=== PATIENT | male | born 2000 | race African-American/Black ===

== ENCOUNTER 2023-03-30 10:48 | Inpatient (IN) | payer OTHER ==
[~2023-03-30] VITALS: Ht 182.9 cm; Wt 75.0 kg
[2023-03-30] MEDS ORDERED: MED REC IN PROGRESS XX SCH (11:50)
[2023-03-30 11:54] LABS: HEMATOCRIT 45.4 % (42.0-52.0); HEMOGLOBIN 15.1 g/dl (13.5-17.5); MEAN CORPUSCULAR HEMOGLOBIN 27.9 pg (27.0-33.0); MEAN CORPUSCULAR HGB CONC 33.3 g/dl (32.0-36.5); MEAN CORPUSCULAR VOLUME 83.8 fl (80.0-96.0); PLATELET COUNT, AUTOMATED 324 10^3/uL (150-450); RED BLOOD COUNT 5.42 10^6/uL (4.30-6.10); WHITE BLOOD COUNT 5.2 10^3/uL (4.0-10.0)
[2023-03-30 12:04] LABS: AMPHETAMINES LEVEL URINE NEGATIVE (NEGATIVE); BARBITURATES URINE NEGATIVE (NEGATIVE); BENZODIAZEPINES URINE NEGATIVE (NEGATIVE); CANNABINOIDS URINE NEGATIVE (NEGATIVE); COCAINE METABOLITE URINE NEGATIVE (NEGATIVE); METHADONE URINE NEGATIVE (NEGATIVE); OPIATES URINE NEGATIVE (NEGATIVE); PHENCYCLIDINE URINE NEGATIVE (NEGATIVE)
[2023-03-30] MEDS ORDERED: HOME MED LIST COMPLETE! XX SCH (12:05)
[2023-03-30 12:06] LABS: ETHYL ALCOHOL (ETHANOL) 0.031 % (0.000-0.010)
[2023-03-30 12:08] LABS: ALBUMIN 4.1 G/DL (3.2-5.2); ALKALINE PHOSPHATASE 96 U/L (46-116); ALT/SGPT 17 U/L (7.0-40); AST/SGOT 18 U/L (<34); BILIRUBIN,DIRECT 0.2 MG/DL (<0.4); BILIRUBIN,TOTAL 0.8 MG/DL (0.3-1.2); BLOOD UREA NITROGEN 9 MG/DL (9-23); CALCIUM LEVEL 9.7 MG/DL (8.5-10.1); CARBON DIOXIDE LEVEL 25 MMOL/L (20-31); CHLORIDE LEVEL 107 MMOL/L (98-107); CREATININE FOR GFR 0.92 MG/DL (0.70-1.30); GLOMERULAR FILTRATION RATE > 60.0 (>60); GLUCOSE, FASTING 63 MG/DL (60-100); POTASSIUM SERUM 4.3 MMOL/L (3.5-5.1); SALICYLATE LEVEL < 3.0 MG/DL (<30); SODIUM LEVEL 142 MMOL/L (136-145); TOTAL PROTEIN 7.4 G/DL (5.7-8.2)
[2023-03-30 12:10] LABS: THYROID STIMULATING HORMONE 1.436 uIU/ML (0.55-4.78)
[2023-03-30] MEDS ORDERED: MOM 30ML SUSPENSION UDC PO PRN (13:00)
[2023-03-30] MEDS ORDERED: MAALOX 30 ML SUSP *UDC PO PRN (13:00)
[2023-03-30] MEDS ORDERED: IBUPROFEN 400MG TAB PO PRN (13:00)
[2023-03-30] MEDS ORDERED: ACETAMINOPHEN TAB 650MG DOSE (2X325MG) PO PRN (13:00)
[2023-03-30] MEDS ORDERED: diphenhydrAMINE 25MG CAP PO PRN (13:00)
[2023-03-30 15:27] VITALS: BP 123/76; TEMP 97.8; O2SAT 99
[2023-03-30 15:32] VITALS: BP 123/76
[2023-03-30] MEDS: traZODone 50 MG TAB PO PRN (21:07)
[2023-03-31 06:27] VITALS: BP 124/67; TEMP 98.5; O2SAT 100
[2023-03-31] MEDS ORDERED: LORazepam 2 MG TAB PO PRN (12:25)
[2023-03-31] MEDS: FOLIC ACID 1MG TAB PO SCH (12:36)
[2023-03-31] MEDS: buPROPion **XL** TABLET 150MG (WELLBUTRIN XL) PO SCH (12:36)
[2023-03-31] MEDS: MULTIVITAMINS/MINERALS THERAP 1 TAB PO SCH (12:36)
[2023-03-31] MEDS: THIAMINE 100 MG TAB PO SCH ×2 (12:36→21:29)
[2023-03-31 13:24] VITALS: BP 123/77
[2023-03-31 17:09] VITALS: BP 128/78; TEMP 97.9
[2023-04-01] MEDS: traZODone 50 MG TAB PO PRN ×2 (00:10→22:43)
[2023-04-01 06:32] VITALS: BP 112/63; TEMP 98
[2023-04-01 08:30] VITALS: BP 112/63
[2023-04-01] MEDS ORDERED: PRAZOSIN 1 MG CAP PO PRN (09:45)
[2023-04-01] MEDS: THIAMINE 100 MG TAB PO SCH (09:59)
[2023-04-01] MEDS: MULTIVITAMINS/MINERALS THERAP 1 TAB PO SCH (09:59)
[2023-04-01] MEDS: buPROPion **XL** TABLET 150MG (WELLBUTRIN XL) PO SCH (09:59)
[2023-04-01] MEDS: FOLIC ACID 1MG TAB PO SCH (09:59)
[2023-04-01] MEDS: PROPRANOLOL 10 MG TAB PO SCH ×2 (10:00→22:43)
[2023-04-01 17:34] VITALS: BP 129/64; TEMP 97.7
[2023-04-02 06:27] VITALS: BP 113/57; TEMP 97.3; O2SAT 99
[2023-04-02] MEDS: MULTIVITAMINS/MINERALS THERAP 1 TAB PO SCH (09:05)
[2023-04-02] MEDS: buPROPion **XL** TABLET 150MG (WELLBUTRIN XL) PO SCH (09:05)
[2023-04-02] MEDS: FOLIC ACID 1MG TAB PO SCH (09:05)
[2023-04-02] MEDS: PROPRANOLOL 10 MG TAB PO SCH ×2 (09:07→21:08)
[2023-04-02 17:39] VITALS: BP 152/67; TEMP 98.6
[2023-04-02] MEDS: traZODone 50 MG TAB PO PRN (22:59)
[2023-04-03 06:05] VITALS: BP 111/74; TEMP 98.5; O2SAT 98
[2023-04-03] MEDS: MULTIVITAMINS/MINERALS THERAP 1 TAB PO SCH (09:19)
[2023-04-03] MEDS: buPROPion **XL** TABLET 150MG (WELLBUTRIN XL) PO SCH (09:19)
[2023-04-03] MEDS: FOLIC ACID 1MG TAB PO SCH (09:19)
[2023-04-03] MEDS: PROPRANOLOL 10 MG TAB PO SCH ×2 (09:20→21:32)
[2023-04-03 16:08] VITALS: BP 137/64; TEMP 98.1; O2SAT 100
[2023-04-03] MEDS ORDERED: PROP10TA56 PO (18:38)
[2023-04-03] MEDS ORDERED: BUPR150T12 PO (18:38)
[2023-04-03] MEDS ORDERED: VITMTA PO (18:38)
[2023-04-03] MEDS ORDERED: FOLI1TAB11 PO (18:38)
[2023-04-03] MEDS ORDERED: TRAZ-252 PO (18:38)
[2023-04-03] MEDS ORDERED: MINI1CAP PO (18:38)
[2023-04-03] MEDS: traZODone 50 MG TAB PO PRN (23:16)
[2023-04-04 06:29] VITALS: BP 113/57; TEMP 97.9; O2SAT 97
[2023-04-04 08:41] VITALS: BP 113/57; TEMP 97.9; O2SAT 97
[2023-04-04] MEDS: FOLIC ACID 1MG TAB PO SCH (09:04)
[2023-04-04] MEDS: MULTIVITAMINS/MINERALS THERAP 1 TAB PO SCH (09:04)
[2023-04-04 09:05] VITALS: BP 113/57
[2023-04-04] MEDS: PROPRANOLOL 10 MG TAB PO SCH (09:05)
[2023-04-04] MEDS: buPROPion **XL** TABLET 150MG (WELLBUTRIN XL) PO SCH (09:15)
== END 2023-04-04 09:27 | disposition home or self-care (01) | DRG 885 ==
LOC: M ED 10:48 → M ED INP 12:59 → M PSY 14:18
PROVIDERS: ADMIT Student in an Organized Health Care Education/Training Program; ATTEND Student in an Organized Health Care Education/Training Program
DX: F32.1 Major depressive disorder, single episode, moderate (principal); R45.851 Suicidal ideations; F10.10 Alcohol abuse, uncomplicated; F41.9 Anxiety disorder, unspecified; F90.9 Attention-deficit hyperactivity disorder, unspecified type; Z79.899 Other long term (current) drug therapy

== ENCOUNTER 2023-04-07 13:17 | Inpatient (IN) | payer OTHER ==
[~2023-04-07] VITALS: Ht 193 cm; Wt 95.0 kg
[~2023-04-07 13:17] MED LIST: BUPR150T12 PO; FOLI1TAB11 PO; MINI1CAP PO; PROP10TA56 PO; TRAZ-252 PO; VITMTA PO
[2023-04-07] MEDS ORDERED: LORazepam 2 MG TAB PO PRN (13:40)
[2023-04-07] MEDS ORDERED: MED REC IN PROGRESS XX SCH (14:20)
[2023-04-07 14:25] LABS: HEMATOCRIT 48.3 % (42.0-52.0); MEAN CORPUSCULAR HEMOGLOBIN 27.9 pg (27.0-33.0); MEAN CORPUSCULAR HGB CONC 33.1 g/dl (32.0-36.5); MEAN CORPUSCULAR VOLUME 84.1 fl (80.0-96.0); PLATELET COUNT, AUTOMATED 344 10^3/uL (150-450); RED BLOOD COUNT 5.74 10^6/uL (4.30-6.10); WHITE BLOOD COUNT 7.4 10^3/uL (4.0-10.0)
[2023-04-07 14:47] LABS: BARBITURATES URINE NEGATIVE (NEGATIVE); CANNABINOIDS URINE NEGATIVE (NEGATIVE); COCAINE METABOLITE URINE NEGATIVE (NEGATIVE); METHADONE URINE NEGATIVE (NEGATIVE); OPIATES URINE NEGATIVE (NEGATIVE); PHENCYCLIDINE URINE NEGATIVE (NEGATIVE)
[2023-04-07 14:48] LABS: AMPHETAMINES LEVEL URINE NEGATIVE (NEGATIVE); BENZODIAZEPINES URINE NEGATIVE (NEGATIVE)
[2023-04-07 14:49] LABS: ETHYL ALCOHOL (ETHANOL) < 0.003 % (0.000-0.010)
[2023-04-07 14:51] LABS: ALBUMIN 4.5 G/DL (3.2-5.2); ALKALINE PHOSPHATASE 90 U/L (46-116); ALT/SGPT 28 U/L (7.0-40); AST/SGOT 31 U/L (<34); BILIRUBIN,DIRECT 0.4 MG/DL (<0.4); BILIRUBIN,TOTAL 1.2 MG/DL (0.3-1.2); BLOOD UREA NITROGEN 14 MG/DL (9-23); CALCIUM LEVEL 9.9 MG/DL (8.5-10.1); CARBON DIOXIDE LEVEL 28 MMOL/L (20-31); CHLORIDE LEVEL 107 MMOL/L (98-107); CREATININE FOR GFR 1.04 MG/DL (0.70-1.30); GLOMERULAR FILTRATION RATE > 60.0 (>60); GLUCOSE, FASTING 86 MG/DL (60-100); POTASSIUM SERUM 4.6 MMOL/L (3.5-5.1); SALICYLATE LEVEL < 3.0 MG/DL (<30); SODIUM LEVEL 139 MMOL/L (136-145)
[2023-04-07 14:53] LABS: THYROID STIMULATING HORMONE 2.136 uIU/ML (0.55-4.78)
[2023-04-07] MEDS ORDERED: ACETAMINOPHEN TAB 650MG DOSE (2X325MG) PO PRN (16:00)
[2023-04-07] MEDS ORDERED: THIAMINE 100 MG TAB PO SCH (16:00)
[2023-04-07] MEDS ORDERED: MOM 30ML SUSPENSION UDC PO PRN (16:00)
[2023-04-07] MEDS ORDERED: MAALOX 30 ML SUSP *UDC PO PRN (16:00)
[2023-04-07] MEDS ORDERED: diphenhydrAMINE 25MG CAP PO PRN (16:00)
[2023-04-07] MEDS ORDERED: IBUPROFEN 400MG TAB PO PRN (16:00)
[2023-04-07] MEDS ORDERED: DOXY100T PO (16:07)
[2023-04-07] MEDS ORDERED: ACET1TAB55 PO (16:07)
[2023-04-07] MEDS ORDERED: BUPR150T12 PO (16:11)
[2023-04-07] MEDS ORDERED: FOLI1TAB11 PO (16:13)
[2023-04-07] MEDS ORDERED: VITMTA PO (16:14)
[2023-04-07] MEDS ORDERED: PRAZ1CAP PO (16:16)
[2023-04-07] MEDS ORDERED: PROP10TA56 PO (16:17)
[2023-04-07] MEDS ORDERED: TRAZ-252 PO (16:19)
[2023-04-07] MEDS ORDERED: HOME MED LIST COMPLETE! XX SCH (16:20)
[2023-04-07 16:50] VITALS: BP 133/81; TEMP 97.5; O2SAT 100
[2023-04-07] MEDS: traZODone 50 MG TAB PO PRN (19:22)
[2023-04-08 06:42] VITALS: BP 125/58; TEMP 97.3; O2SAT 100
[2023-04-08] MEDS ORDERED: MULTIVITAMINS/MINERALS THERAP 1 TAB PO SCH (09:00)
[2023-04-08] MEDS ORDERED: FOLIC ACID 1MG TAB PO SCH (09:00)
[2023-04-08] MEDS: PROPRANOLOL 10 MG TAB PO SCH ×2 (14:20→21:46)
[2023-04-08] MEDS: buPROPion **XL** TABLET 150MG (WELLBUTRIN XL) PO SCH (14:20)
[2023-04-08 16:02] VITALS: BP 130/60; TEMP 97.9; O2SAT 100
[2023-04-08] MEDS: traZODone 50 MG TAB PO PRN (21:45)
[2023-04-08] MEDS: PRAZOSIN 1 MG CAP PO SCH (21:47)
[2023-04-09 06:43] VITALS: BP 125/63; TEMP 97.3; O2SAT 97
[2023-04-09] MEDS: buPROPion **XL** TABLET 150MG (WELLBUTRIN XL) PO SCH (08:46)
[2023-04-09] MEDS: PROPRANOLOL 10 MG TAB PO SCH ×2 (08:47→20:19)
[2023-04-09 15:34] VITALS: BP 117/60; TEMP 97.5; O2SAT 100
[2023-04-09] MEDS: traZODone 100 MG TAB PO PRN (20:19)
[2023-04-09] MEDS: PRAZOSIN 1 MG CAP PO SCH (20:19)
[2023-04-10 06:51] VITALS: BP 138/64; TEMP 98.6; O2SAT 100
[2023-04-10] MEDS: PROPRANOLOL 10 MG TAB PO SCH ×2 (08:50→20:42)
[2023-04-10] MEDS: buPROPion **XL** TABLET 150MG (WELLBUTRIN XL) PO SCH (08:50)
[2023-04-10 18:00] VITALS: BP 145/73; TEMP 97.8; O2SAT 96
[2023-04-10] MEDS: PRAZOSIN 1 MG CAP PO SCH (20:42)
[2023-04-10] MEDS: traZODone 100 MG TAB PO PRN (20:42)
[2023-04-11 06:36] VITALS: BP 108/55; TEMP 98.1; O2SAT 99
[2023-04-11] MEDS: buPROPion **XL** TABLET 150MG (WELLBUTRIN XL) PO SCH (10:07)
[2023-04-11] MEDS: PROPRANOLOL 10 MG TAB PO SCH ×2 (10:07→20:32)
[2023-04-11 18:03] VITALS: BP 139/75; TEMP 98; O2SAT 100
[2023-04-11] MEDS: PRAZOSIN 1 MG CAP PO SCH (20:32)
[2023-04-11] MEDS: traZODone 100 MG TAB PO PRN (20:32)
[2023-04-12 06:24] VITALS: BP 117/57; TEMP 97.2; O2SAT 97
[2023-04-12] MEDS: buPROPion **XL** TABLET 150MG (WELLBUTRIN XL) PO SCH (08:44)
[2023-04-12 08:45] VITALS: BP 117/57
[2023-04-12] MEDS: PROPRANOLOL 10 MG TAB PO SCH (08:45)
== END 2023-04-12 10:22 | disposition home or self-care (01) | DRG 881 ==
LOC: EDBD 13:17 → M ED 13:17 → M ED INP 15:59 → M PSY 16:55
PROVIDERS: ADMIT Student in an Organized Health Care Education/Training Program; ATTEND Student in an Organized Health Care Education/Training Program
DX: F32.A Depression, unspecified (principal); R45.851 Suicidal ideations; F10.10 Alcohol abuse, uncomplicated; F90.9 Attention-deficit hyperactivity disorder, unspecified type; F41.9 Anxiety disorder, unspecified; Z76.5 Malingerer [conscious simulation]